=== PATIENT | male | born 1960 | race Caucasian/White ===

== ENCOUNTER → 2020-10-31 | Outpatient (CLI) | payer OTHER ==
[~2020-10-31] MED LIST: CYCL5TAB PO; FEXO1TAB25 PO; OXYC-302 PO; TAPE100T6 PO
== END | disposition home or self-care (01) ==
LOC: RAD 10:56
PROVIDERS: ATTEND Neurological Surgery
DX: M51.35 Other intervertebral disc degeneration, thoracolumbar region (principal); M41.86 Other forms of scoliosis, lumbar region; M48.061 Spinal stenosis, lumbar region without neurogenic claudication
CPT/HCPCS: 72082; 72110